=== PATIENT | female | born 1975 | race Caucasian/White ===

== ENCOUNTER 2016-11-20 22:19 | Observation (INO) | payer BC, OTHER ==
[2016-11-20] MEDS ORDERED: Aspirin Low Dose CHEW TAB* 81 MG PO ONE (22:22)
[2016-11-20 22:56] LABS: Albumin 4.1 g/dL (3.2-5.2); BUN/Creatinine Ratio 12.4 (8-20); Calcium 9.1 mg/dL (8.6-10.3); EGFR African American 89.9 (>60); EGFR Non-African American 69.9 (>60); Globulin 3.4 g/dL (2-4); Total Bilirubin 1.3 mg/dL (0.2-1.0); Total Protein 7.5 g/dL (6.4-8.9)
--- NOTE | 2016-11-20 23:02 | RAD ---
INDICATION: Chest pain COMPARISON: Chest x-ray April 19, 2015 TECHNIQUE: An AP portable view obtained at 2240 hours is submitted. FINDINGS: Bones/Soft Tissues: There are no acute bony findings. Cardiomediastinal: The cardiomediastinal silhouette is normal. Lungs: There are no infiltrates. Pleura: There are no pleural effusions. Other: There is artifact likely related to the patient's gown. IMPRESSION: NO ACTIVE DISEASE.
[2016-11-20 23:05] LABS: Potassium 4.5 mmol/L (3.5-5.0)
[2016-11-20 23:08] LABS: Hematocrit 44 % (35-47); Hemoglobin 15.2 g/dl (12.0-16.0); Mean Corpuscular HGB Conc 35 g/dl (31-36); Mean Corpuscular Hemoglobin 32 pg (27-31); Mean Corpuscular Volume 92 fL (80-97); Red Blood Count 4.78 10^6/ul (4.0-5.4); Red Cell Distribution Width 13 % (10.5-15); White Blood Count 8.9 10^3/ul (3.5-10.8)
[2016-11-20 23:09] LABS: Comments Flag Yes
[2016-11-20 23:12] LABS: Add Diff/Slide Review? Slide Review Added
[2016-11-20 23:15] LABS: Troponin I 0.01 ng/mL (<0.04)
[2016-11-20 23:30] LABS: Mean Platelet Volume 9 um3 (7.4-10.4)
--- NOTE | 2016-11-21 | ED ---
Carroll Fuentes Erika, scribed for Vicky Mckinney MD on 11/20/16 at 2255 . HPI Chest Pain - HPI Summary HPI Summary: Patient is a 41-year-old female presenting to the ED with a CC of chest tightness today. Patient reports that 1 year ago, she was seen in the ED with chest pain radiating to her arm, and was diagnosed with anxiety. She states today, her symptoms feel different. She reports that around 22:00 today, she developed numbness and tingling diffusely. She also notes chest tightness which lasted a few minutes, and was rated an 8/10 pain. Associated symptoms include elevated heart rate, but patient denies SOB and nausea. Pt reports that she has had cold-like symptoms, and has been coughing today. Pt denies recent travel. Pt took Nyquil tonight. Patient denies Hx HTN, DM, and hyperlipidemia. She denies FHx AK before the age of 55, and denies FHx PE. Patient lives with her . She is a former smoker who quit 2 years ago, and she drinks a few drinks/night on weekends. Patient does not have a set PCP, but has been seen by [facility]. - History of Current Complaint Chief Complaint: EDChestPainROMI Time Seen by Provider: 11/20/16 22:22 Hx Obtained From: Patient, Family/Bundle Clerk - Onset/Duration: Started Hours Ago - 1 hour, Atraumatic, Resolved Timing: Constant, Lasting Minutes Initial Severity: Moderate Current Severity: None Pain Intensity: 0 Pain Scale Used: 0-10 Numeric Chest Pain Radiates: No Character: Tightness Aggravating Factor(s): Nothing Alleviating Factor(s): Spontaneous Resolution Associated Signs and Symptoms: Positive: Numbness, Tingling, Other: - elevated HR. Negative: Shortness of Breath, Nausea - Allergy/Home Medications Allergies/Adverse Reactions: Allergies Allergy/AdvReac Type Severity Reaction Status Date / Time No Known Allergies Allergy Verified 04/19/15 11:33 PMH/Surg Hx/FS Hx/Imm Hx Endocrine/Hematology History: Denies: Hx Diabetes Cardiovascular History: Denies: Hx Hypercholesterolemia, Hx Hypertension - Surgical History Surgery Procedure, Year, and Place: D&C Infectious Disease History: Denies: Traveled Outside the [place] in Last 30 Days - Family History Family History: Denies FHx AK before age 55. Denies FHx PE - Social History Lives: With Family Alcohol Use: Weekly Hx Substance Use: No Substance Use Type: Reports: None Hx Tobacco Use: Yes Smoking Status (MU): Former Smoker Review of Systems Cardiovascular: Other - elevated HR Positive: Chest Pain Positive: Cough. Negative: Shortness Of Breath Negative: Nausea Positive: Paresthesia, Numbness All Other Systems Reviewed And Are Negative: Yes Physical Exam Triage Information Reviewed: Yes Vital Signs On Initial Exam: Initial Vital Signs Temp 99.8 F 11/20/16 22:20 Pulse 91 11/20/16 22:20 Resp 18 11/20/16 22:20 BP 162/88 11/20/16 22:20 Pulse Ox 97 11/20/16 22:20 Vital Signs Reviewed: Yes Appearance: Positive: Well-Appearing, No Pain Distress Skin: Positive: Warm, Skin Color Reflects Adequate Perfusion, Dry Eyes: Positive: EOMI, NANCY ENT: Positive: Pharynx normal, TMs normal Neck: Positive: Supple, Nontender Respiratory/Lung Sounds: Positive: Clear to Auscultation, Breath Sounds Present. Negative: Rales, Rhonchi, Wheezes Cardiovascular: Positive: RRR, Other - No gallops. Negative: Murmur, Rub Abdomen Description: Positive: Nontender, Soft, Other: - No rebound. Negative: Distended, Guarding Bowel Sounds: Positive: Present Musculoskeletal: Positive: Strength/ROM Intact. Negative: Edema Left, Edema Right Neurological: Positive: Sensory/Motor Intact, Alert, Oriented to Person Place, Time, Other - CN II-XII intact Psychiatric: Positive: Affect/Mood Appropriate Diagnostics - Vital Signs Vital Signs Temp Pulse Resp BP Pulse Ox 11/20/16 22:20 99.8 F 91 18 162/88 97 - Laboratory Lab Results: Lab Results 11/20/16 11/20/16 11/20/16 Range/Units 22:30 22:30 22:30 WBC 8.9 (3.5-10.8) 10^3/ul RBC 4.78 (4.0-5.4) 10^6/ul Hgb 15.2 (12.0-16.0) g/dl Hct 44 (35-47) % MCV 92 (80-97) fL MCH 32 H (27-31) pg MCHC 35 (31-36) g/dl RDW 13 (10.5-15) % Plt Count 240 (150-450) 10^3/ul MPV 9 (7.4-10.4) um3 Neut % (Auto) 63.1 (38-83) % Lymph % (Auto) 26.3 (25-47) % Leon % (Auto) 7.0 (1-9) % Eos % (Auto) 2.9 (0-6) % Baso % (Auto) 0.7 (0-2) % Absolute Neuts (auto) 5.6 (1.5-7.7) 10^3/ul Absolute Lymphs (auto) 2.3 (1.0-4.8) 10^3/ul Absolute Monos (auto) 0.6 (0-0.8) 10^3/ul Absolute Eos (auto) 0.3 (0-0.6) 10^3/ul Absolute Basos (auto) 0.1 (0-0.2) 10^3/ul Absolute Nucleated RBC 0.02 10^3/ul Nucleated RBC % 0.2 Sodium 131 L (133-145) mmol/L Potassium 4.5 (3.5-5.0) mmol/L Chloride 95 L (101-111) mmol/L Carbon Dioxide 28 (22-32) mmol/L Anion Gap 8 (2-11) mmol/L BUN 11 (6-24) mg/dL Creatinine 0.89 (0.51-0.95) mg/dL Est GFR ( Amer) 89.9 (>60) Est GFR (Non-Af Amer) 69.9 (>60) BUN/Creatinine Ratio 12.4 (8-20) Glucose 110 H (70-100) mg/dL Lactic Acid 1.9 (0.5-2.0) mmol/L Calcium 9.1 (8.6-10.3) mg/dL Total Bilirubin 1.30 H (0.2-1.0) mg/dL AST 138 H (13-39) U/L ALT 328 H (7-52) U/L Alkaline Phosphatase 69 (34-104) U/L Troponin I 0.01 (<0.04) ng/mL Total Protein 7.5 (6.4-8.9) g/dL Albumin 4.1 (3.2-5.2) g/dL Globulin 3.4 (2-4) g/dL Albumin/Globulin Ratio 1.2 (1-3) Result Diagrams: 11/20/16 22:30 11/20/16 22:30 Lab Statement: Any lab studies that have been ordered have been reviewed, and results considered in the medical decision making process. - Radiology CXR Xray Interpretation: No Acute Changes Radiology Interpretation Completed By: ED Physician - EKG 22:19 Cardiac Rate: NL - at 86 bpm EKG Rhythm: Sinus Rhythm EKG Interpretation: Poor R wave progression EKG Comparison: No Significant Change - from 04/19/2015 Re-Evaluation - Re-Evaluation First Eval Re-Evaluation Time: 23:15 Comment: Patient agrees with plan for admission Chest Pain Course/Dx - Course Course Of Treatment: 41 yo female here with tingling all over and chest discomfort. risks include tob and untreated htn, her ekg is unchanged from a previous ekg but which does show poor r wave progression. given that she arrived right after the chest pain started she will not be ruled out until 4am. I have asked the hospitalist to put in her observation - Diagnoses Provider Diagnoses: Chest pain - Provider Notifications Discussed Care Of Patient With: Dr. Sanchez (hospitalist) at 23:14 - agrees to admit Discharge - Discharge Plan Condition: Stable Disposition: ADMITTED TO [facility] Referrals: No Primary Care Phys,NOPCP [Primary Care Provider] - The documentation as recorded by the Carroll garsia Erika accurately reflects the service I personally performed and the decisions made by me, Vicky Mckinney MD.
[2016-11-21] MEDS: LORazepam INJ* 2 MG/ML 1 ML VIAL IV PUSH ONE ×2 (00:13→01:15)
--- NOTE | 2016-11-21 01:19 | HP ---
H&P (Free Text) History and Physical: PCP: [facility] Date/Time of Evaluation: 11/21/2016 0130 CC: chest pain, N/T HPI: Mrs Redd is a 41YO healthy female reporting to triage nursing R shoulder pain radiating to the L shoulder. However, to me she reports onset of whole body "numbness & tingling" as the reason she presented. She admits to some palpitations, but no SOB, N/V, light-headedness, or sweats. There has been no focal weakness, change in speech/swallow/vision, or other issues. While in the ED she developed mild substernal chest tightness without other associations and without exacerbating or alleviating factors. Also, while here she states she has had a couple of brief episodes of L-sided body numbness and tingling without other associations. She denies F/C, N/V/D, abdominal pain, B/U/F of urine. She was on vacation this week and while not commenting on how much, she admits to significant alcohol during the time. 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; full code status FamHx: negative for early onset CAD ROS: as above, otherwise reviewed and all were negative Constitutional: NAD, normally developed, obese white female vitals: Vital Signs Temp 37.7 C 11/20/16 22:20 Pulse 79 11/21/16 01:00 Resp 13 11/21/16 01:15 BP 162/88 11/20/16 22:20 Pulse Ox 98 11/21/16 01:00 Intake & Output 11/20/16 11/20/16 11/21/16 11:59 23:59 11:59 Weight 122.47 kg HEENM: atraumatic; sclera/conjunctiva: non-icteric/clear; hearing: intact; oropharynx: clear, mucosa moist Neck: soft tissue: non-tender; thyroid: normal Pulmonary: clear to auscultation bilaterally, good aeration, no accessory muscle use CV: RR/RR, normal S1S2, no carotid bruit, nno jugular venous distention, 2+ B DP /PT, no edema Abdominal: soft, non-distended, non-tender, no rebound/guarding/rigidity, normoactive bowel sounds, no hepatosplenomegaly or masses, no costovertebral angle tenderness Musculoskeletal: general: grossly intact; gait: stable Integumental: normal appearance and texture of exposed skin Neurological cranial nerves II: visual addison intact III/IV/: symmetric light reflex, EOMI/PERRLA, intact convergence & accommodation V: intact facial sensation, intact mastication VII: intact facial symmetry, intact eye clench VIII: intact hearing IX/X: symmetric palatal motion, no dysarthria XII: midline tongue protrusion, normal voice articulation motor: R-handed, no pronator drift LUE: 4+/5 proximally, distally, & police lieutenant precinct strength RUE: 4+/5 proximally, distally, & police lieutenant precinct strength LLE: 4+/5 proximally & distally RLE: 4+/5 proximally & distally coordination finger/nose: intact B heal/tristan: intact B dysdiadochokinesia: none sensory crude touch: intact globally pinprick: intact globally proprioception: intact BLE DTRs biceps: 2+ B triceps: 2+ B brachioradialis: 2+ B patellar: 2+ B Achilles: 2+ B Babinski: negative B Psychiatric orientation: AA&O to PPS affect: calm mood: cooperative eye contact: good content: reliable responses: timely insight: good to fair Testing: Lab Results 11/20/16 11/20/16 11/20/16 Range/Units 22:30 22:30 22:30 WBC 8.9 (3.5-10.8) 10^3/ul RBC 4.78 (4.0-5.4) 10^6/ul Hgb 15.2 (12.0-16.0) g/dl Hct 44 (35-47) % MCV 92 (80-97) fL MCH 32 H (27-31) pg MCHC 35 (31-36) g/dl RDW 13 (10.5-15) % Plt Count 240 (150-450) 10^3/ul MPV 9 (7.4-10.4) um3 Neut % (Auto) 63.1 (38-83) % Lymph % (Auto) 26.3 (25-47) % Hinds % (Auto) 7.0 (1-9) % Eos % (Auto) 2.9 (0-6) % Baso % (Auto) 0.7 (0-2) % Absolute Neuts (auto) 5.6 (1.5-7.7) 10^3/ul Absolute Lymphs (auto) 2.3 (1.0-4.8) 10^3/ul Absolute Monos (auto) 0.6 (0-0.8) 10^3/ul Absolute Eos (auto) 0.3 (0-0.6) 10^3/ul Absolute Basos (auto) 0.1 (0-0.2) 10^3/ul Absolute Nucleated RBC 0.02 10^3/ul Nucleated RBC % 0.2 Sodium 131 L (133-145) mmol/L Potassium 4.5 (3.5-5.0) mmol/L Chloride 95 L (101-111) mmol/L Carbon Dioxide 28 (22-32) mmol/L Anion Gap 8 (2-11) mmol/L BUN 11 (6-24) mg/dL Creatinine 0.89 (0.51-0.95) mg/dL Est GFR ( Amer) 89.9 (>60) Est GFR (Non-Af Amer) 69.9 (>60) BUN/Creatinine Ratio 12.4 (8-20) Glucose 110 H (70-100) mg/dL Lactic Acid 1.9 (0.5-2.0) mmol/L Calcium 9.1 (8.6-10.3) mg/dL Total Bilirubin 1.30 H (0.2-1.0) mg/dL AST 138 H (13-39) U/L ALT 328 H (7-52) U/L Alkaline Phosphatase 69 (34-104) U/L Troponin I 0.01 (<0.04) ng/mL Total Protein 7.5 (6.4-8.9) g/dL Albumin 4.1 (3.2-5.2) g/dL Globulin 3.4 (2-4) g/dL Albumin/Globulin Ratio 1.2 (1-3) ECG, personally reviewed: NSR rate 86, no ischemia CXR, personally reviewed: IMPRESSION: NO ACTIVE DISEASE. Impression: 41F presenting with chest discomfort DIAGNOSIS & PLAN Primary chest pain r/o ACS : telemetry : trend troponin : supplemental oxygen hepatitis 2nd alcohol, mild-mod : IVFs : trend LFTs : advised to decrease alcohol consumption & f/u w/ PCP for monitoring of LFTs anxiety : alprazolam PRN Admission Rational: CDU observation for chest pain r/o DVTp: CHASITY Code Status: full HCP:
[2016-11-21] MEDS ORDERED: Acetaminophen TAB* 325 MG PO PRN (01:27)
[2016-11-21] MEDS ORDERED: Melatonin (NF) 3 MG TAB PO PRN (01:27)
[2016-11-21] MEDS ORDERED: Ondansetron INJ* 2 MG/ML VIAL IV PRN (01:28)
[2016-11-21] MEDS ORDERED: NS 0.9% 1000 ML* 1,000 ML IV SCH (01:30)
[2016-11-21] MEDS ORDERED: NS 0.9% 1000 ML* 1,000 ML IV ONE (01:30)
[2016-11-21 01:41] LABS: Troponin I 0.01 ng/mL (<0.04)
[2016-11-21] MEDS ORDERED: ALPRAZolam TAB* 0.25 MG PO PRN (01:42)
[2016-11-21] MEDS ORDERED: Pantoprazole IV* 40 MG IV SCH (02:00)
[2016-11-21 06:36] LABS: Albumin 3.6 g/dL (3.2-5.2); Direct Bilirubin 0.3 mg/dL (0.03-0.18); Indirect Bilirubin 0.9 mg/dL (0.3-1.0); Total Bilirubin 1.2 mg/dL (0.2-1.0); Total Protein 6.6 g/dL (6.4-8.9)
[2016-11-21 06:41] LABS: Troponin I 0.01 ng/mL (<0.04)
[2016-11-21] MEDS ORDERED: Aspirin TAB* 325 MG PO SCH (09:00)
[2016-11-21] MEDS ORDERED: Docusate CAP* 100 MG PO SCH (09:00)
--- NOTE | 2016-11-21 10:01 | PN ---
Subjective Date of Service: 11/21/16 Interval History: Patient seen and examined at bedside. She reports chest and shoulder discomfort overnight but denies any complaint this morning. Denies SOB, abd pain, n/v. Does report tingling/numbness that was present overnight in left arm but is not present currently. Patient reports moving to area 1 month ago and has no PCP. Telemetry: SR 70s Family History: Unchanged from Admission Social History: Unchanged from Admission Past Medical History: Unchanged from Admission Objective Active Medications: Acetaminophen (Tylenol Tab*) 650 mg PO Q6H PRN PRN Reason: FEVER/PAIN Alprazolam (Xanax Tab*) 0.25 mg PO TID PRN PRN Reason: ANXIETY Aspirin (Aspirin Tab*) 325 mg PO DAILY [facility] Docusate Sodium (Colace Cap*) 200 mg PO BID [facility] Sodium Chloride (Ns 0.9% 1000 Ml*) 1,000 mls @ 125 mls/hr IV PER RATE [facility] Last Admin: 11/21/16 04:53 Dose: 125 mls/hr Melatonin (Melatonin (Nf)) 3 mg PO BEDTIME PRN; Protocol PRN Reason: Sleep Ondansetron HCl (Zofran Inj*) 4 mg IV Q6H PRN PRN Reason: NAUSEA Pantoprazole Sodium (Protonix Iv*) 40 mg IV 0900 [facility] Last Admin: 11/21/16 03:27 Dose: 40 mg Vital Signs 11/21/16 11/21/16 11/21/16 01:50 02:42 03:11 Temperature 97.6 F 98.4 F 98.4 F Pulse Rate 83 85 Respiratory 16 16 Rate Blood Pressure 151/82 151/82 (mmHg) O2 Sat by Pulse 97 97 Oximetry 11/21/16 11/21/16 11/21/16 03:54 07:29 08:32 Temperature 98.0 F 98.2 F Pulse Rate 79 75 Respiratory 20 16 Rate Blood Pressure 153/96 159/74 (mmHg) O2 Sat by Pulse 100 98 98 Oximetry Oxygen Devices in Use Now: None Appearance: Young female patient, lying in bed, in NAD Eyes: PERRLA Ears/Nose/Mouth/Throat: Clear Oropharnyx, Mucous Membranes Moist Neck: NL Appearance and Movements; NL JVP Respiratory: Symmetrical Chest Expansion and Respiratory Effort, Clear to Auscultation Cardiovascular: NL Sounds; No Murmurs; No JVD, RRR Abdominal: NL Sounds; No Tenderness; No Distention Extremities: No Edema Skin: No Rash or Ulcers Neurological: Alert and Oriented x 3 Lines/Tubes/Other Access: Clean, Dry and Intact Peripheral IV Result Diagrams: 11/20/16 22:30 11/20/16 22:30 Additional Lab and Data: Lab Results 11/20/16 11/20/16 11/20/16 Range/Units 22:30 22:30 22:30 WBC 8.9 (3.5-10.8) 10^3/ul RBC 4.78 (4.0-5.4) 10^6/ul Hgb 15.2 (12.0-16.0) g/dl Hct 44 (35-47) % MCV 92 (80-97) fL MCH 32 H (27-31) pg MCHC 35 (31-36) g/dl RDW 13 (10.5-15) % Plt Count 240 (150-450) 10^3/ul MPV 9 (7.4-10.4) um3 Neut % (Auto) 63.1 (38-83) % Lymph % (Auto) 26.3 (25-47) % Screven % (Auto) 7.0 (1-9) % Eos % (Auto) 2.9 (0-6) % Baso % (Auto) 0.7 (0-2) % Absolute Neuts (auto) 5.6 (1.5-7.7) 10^3/ul Absolute Lymphs (auto) 2.3 (1.0-4.8) 10^3/ul Absolute Monos (auto) 0.6 (0-0.8) 10^3/ul Absolute Eos (auto) 0.3 (0-0.6) 10^3/ul Absolute Basos (auto) 0.1 (0-0.2) 10^3/ul Absolute Nucleated RBC 0.02 10^3/ul Nucleated RBC % 0.2 Sodium 131 L (133-145) mmol/L Potassium 4.5 (3.5-5.0) mmol/L Chloride 95 L (101-111) mmol/L Carbon Dioxide 28 (22-32) mmol/L Anion Gap 8 (2-11) mmol/L BUN 11 (6-24) mg/dL Creatinine 0.89 (0.51-0.95) mg/dL Est GFR ( Amer) 89.9 (>60) Est GFR (Non-Af Amer) 69.9 (>60) BUN/Creatinine Ratio 12.4 (8-20) Glucose 110 H (70-100) mg/dL Lactic Acid 1.9 (0.5-2.0) mmol/L Calcium 9.1 (8.6-10.3) mg/dL Total Bilirubin 1.30 H (0.2-1.0) mg/dL AST 138 H (13-39) U/L ALT 328 H (7-52) U/L Alkaline Phosphatase 69 (34-104) U/L Troponin I 0.01 (<0.04) ng/mL Total Protein 7.5 (6.4-8.9) g/dL Albumin 4.1 (3.2-5.2) g/dL Globulin 3.4 (2-4) g/dL Albumin/Globulin Ratio 1.2 (1-3) Assess/Plan/Problems-Billing Assessment: Ms. Redd is a 41 yo female with no significant known PMH that presented to the ED on 11/20/16 for evaluation of generalized tingling/numbness and chest pain. - Patient Problems (1) Chest pain Code(s): R07.9 - CHEST PAIN, UNSPECIFIED Comment: No significant ST or T wave changes, troponins flat. Nuclear stress test is low risk and shows no evidence of stress induced myocardial ischemia or presence of an infarct and normal LV wall motion and EF. (2) HTN (hypertension) Code(s): I10 - ESSENTIAL (PRIMARY) HYPERTENSION Comment: SBP 130s-170s (even when checked manually) Start amlodipine. Better SBP with amlodipine. Outpatient follow-up with PCP for further hypertensive management. (3) Hepatitis, alcoholic Current Visit: Yes Status: Acute Code(s): K70.10 - ALCOHOLIC HEPATITIS WITHOUT ASCITES SNOMED Code(s): 928969725 Comment: LFTs mildly improved from previous labs Patient reports "increased" alcohol consumption recently on vacation and admits to stress. I have advised her to stop drinking or to reduce her alcohol consumption. Follow-up LFTs as an outpatient, results to PCP. (4) Anxiety Code(s): F41.9 - ANXIETY DISORDER, UNSPECIFIED Comment: Supportive care. (5) DVT prophylaxis Code(s): UZW1834 - Comment: TEDs Status and Disposition: OBV admit. D/c to home.
[2016-11-21 10:35] LABS: HDL Cholesterol 41.3 mg/dL
[2016-11-21] MEDS ORDERED: Regadenoson* 0.4 MG/5 ML SYRINGE ONE (11:57)
[2016-11-21] MEDS ORDERED: Aminophylline IV* 25 MG/ML 10 ML VIAL ONE (11:57)
--- NOTE | 2016-11-21 13:31 | RAD ---
Edited for charges. INDICATION: Chest pain, hypertension, obesity, family history of heart disease. COMPARISON: None. TECHNIQUE: 10.380 mCi of Tc-99m Myoview were administered IV. SPECT images of the heart were obtained. Later on the same day, under the direction of Dr. Cobb, the patient was given an IV injection of a pharmacologic stress agent. Subsequently, the patient was given an IV injection of 24.600 mCi Tc-99m Myoview. SPECT images of the heart were obtained and a gated wall motion study was performed. FINDINGS: Gated wall motion images were obtained at stress and demonstrate wall motion to be within normal limits. Calculated left ventricular ejection fraction is 72 % at stress. Estimated LEFT ventricular end diastolic volume is 104 mL. TID 1.17. Based on review of the attenuation corrected and non corrected images the distribution of radiopharmaceutical within the myocardium on the stress and rest images is within normal limits. No fixed or reversible regions of hypoperfusion evident. IMPRESSION: 1. No evidence for stress induced myocardial ischemia or presence of an infarct. 2. Normal left ventricular wall motion and ejection fraction. ASSESSMENT: Low risk. Based on imaging criteria from ACC/AHA 2002 Guideline Update for the Management of Patients With Chronic Stable Angina Table 23. Noninvasive Risk Stratification. MTDD
[2016-11-21] MEDS ORDERED: amLODIPine TAB* 5 MG PO SCH (15:00)
[2016-11-21 15:22] VITALS: BP 149/76
--- NOTE | 2016-11-22 14:34 | DS ---
DISCHARGE SUMMARY: DATE OF ADMISSION: 11/21/16 DATE OF DISCHARGE: 11/21/16 PROVIDER: Ok Braden NP ATTENDING PHYSICIAN: Amado Craig MD* (as dictated by Ok Braden NP) PRIMARY CARE PHYSICIAN: Dilshad Lopez MD PRIMARY DISCHARGE DIAGNOSES: 1. Chest pain. 2. Hepatitis, secondary to alcohol use. 3. Hypertension. HOME MEDICATIONS AT DISCHARGE: Amlodipine 5 mg daily - this was a new medication. The patient was not previously on any home medications. DIAGNOSTIC TESTING DURING THE PATIENT'S COURSE OF STAY: Chest x-ray performed on 11/20/16 showed no active disease. Nuclear medicine scan and cardiac stress test, findings: Gated wall motion images were obtained at stress and demonstrated wall motion to be within normal limits. Calculated left ventricular ejection fraction is 72% at stress. Estimated left ventricular end-diastolic volume is 104 mL, TID 1.17. Impression: 1. No evidence for stress-induced myocardial ischemia or presence of infarct. 2. Normal left ventricular wall motion ejection fraction. Assessment: Low risk. HOSPITAL COURSE OF STAY: For full details, please refer to the H and P provided by Dr. Sanchez. In summary, Ms. Redd is a 41-year-old female with no known past medical history, who presented to the ER for evaluation of right shoulder pain that radiated to the left shoulder. She also reported whole body "numbness and tingling" as well as some palpitations and substernal chest tightness. Her EKG showed normal sinus rhythm with no ischemic changes noted; however, given her presentation, the patient was admitted under observation status to rule out acute coronary syndrome. She was monitored on telemetry and remained in sinus rhythm. Her troponins remained flat at 0.01 on all 3 checks. A liver profile was checked and the patient has normal triglycerides at 123, cholesterol at 137, LDL 71, and HDL 41.3. Her hemoglobin A1c is 5.2. There was concern for the patient's LFTs, which were elevated upon admission. She had a noted total bilirubin of 1.30, an AST of 138, and an ALT of 328. It was repeated in the morning with her AST at 92 and her ALT at 258 following IV fluids. Her total bilirubin was 1.2. The patient did report to the admitting physician that she had had increased amount of alcohol over the past week due to recent vacation. In terms of the patient's chest pain, she states that the shoulder discomfort, the tingling and numbness, and the substernal chest pain was present overnight, but not present in the morning. She agrees to not having it previously with the PCP. We went ahead and ordered a nuclear stress test to be done during this admission. The results, as previously stated, were negative for any acute coronary syndrome and again the patient has negative EKG and troponins. However , it was noted during her admission and during her stress test that her blood pressure was significantly elevated, ranging from 130s to 180s, these were also checked manually and remained consistent. The patient was unable to have exercise-induced stress test due to these blood pressures and instead had a chemical nuclear stress test. The patient was started on amlodipine and "the side effects" and purpose of this medications was reviewed with the patient. She is in agreement with this. She states that she does have a history of similar symptoms of tingling and numbness when she was and reports that she had concern for high blood pressure at that time as well. In terms of the patient's alcoholic hepatitis, she was advised to stop drinking or to at least reduce her alcohol intake if she is unable to stop drinking at all. The patient verbalized understanding. I did order followup LFTs to be completed later on in the week on or Monday prior to her followup appointment with Dr. Lopez at [facility]. CONCERNS AT DISCHARGE: Ms. Redd is discharged to home on 11/21/16 with a plan to follow up with [facility] on 11/24/16. DIET: Heart healthy diet. ACTIVITY: As tolerated. CONDITION: Stable. DISPOSITION: To home. TIME SPENT: Time spent on this discharge was approximately 40 minutes. Again, this is only a brief summary of the patient's hospital course of stay. For full details, please refer to the full medical record. If you have any further questions or need further assistance, please feel free to contact me at [phone]. OK BRADEN NP CC: Dilshad Lopez MD* [id number]/[facility] #: [id number] [facility]
== END 2016-11-21 16:30 | disposition home or self-care (01) ==
LOC: ED 22:19 → MEDTELE 11-21 01:38
PROVIDERS: ADMIT Hospitalist; ATTEND Internal Medicine
DX: R07.9 Chest pain, unspecified (principal); K70.10 Alcoholic hepatitis without ascites; I10 Essential (primary) hypertension; M25.511 Pain in right shoulder; Z87.891 Personal history of nicotine dependence; Z79.82 Long term (current) use of aspirin; F41.9 Anxiety disorder, unspecified
CPT/HCPCS: 36415; 71010; 78452; 80053; 80061; 80076; 83036; 83605; 84484; 85025; 93005; 93017; 96374; 99284; A9270-GY; A9502; G0378; J0280; J2060; J2785

== ENCOUNTER 2023-08-21 07:02 | Inpatient (IN) ==
[2023-08-21 07:49] LABS: INR 3.53 (0.83-1.13)
[2023-08-21 07:52] LABS: Hematocrit 22.3 % (35-45); Hemoglobin 7.5 g/dL (11.5-14.3); Mean Corpuscular Hemoglobin 36.4 pg (27-33); Mean Corpuscular Hgb Conc 33.6 g/dL (31-36); Mean Corpuscular Volume 108.1 fL (80-97); Mean Platelet Volume 8.6 fL (7.5-11.2); Platelet Count 170 10^3/uL (150-450); Red Blood Count 2.06 10^6/uL (3.63-4.92); Red Cell Distribution Width 18.8 % (12-17); White Blood Count 15.3 10^3/uL (3.8-11.8)
[2023-08-21 08:08] LABS: HCG Pregnancy 0.87 mIU/mL
[2023-08-21 08:09] LABS: Albumin 2.3 g/dL (3.2-5.2); Albumin/Globulin Ratio 0.7 (1-3); C Reactive Protein 5.17 mg/L (<8.01); Calcium 9.1 mg/dL (8.6-10.3); Creatinine, Serum 1.25 mg/dL (0.51-0.95); Direct Bilirubin 4.3 mg/dL (0.03-0.18); Globulin 3.3 g/dL (2-4); Indirect Bilirubin 5.6 mg/dL (0.3-1.0); Magnesium 1.5 mg/dL (1.9-2.7); Potassium 4.5 mmol/L (3.5-5.0); Total Bilirubin 9.9 mg/dL (0.2-1.0); Total Protein 5.6 g/dL (6.4-8.9); eGFR CKD-EPI 53.2 (>60)
[2023-08-21 08:11] LABS: Urine Appearance Cloudy; Urine Color Orange
[2023-08-21 08:20] LABS: Urine Specific Gravity 1.023 (1.002-1.030)
[2023-08-21] MEDS ORDERED: cefTRIAXone 2 gm/50 mL D5W 2 GM/50 ML BAG IV ONE (08:26)
[2023-08-21 08:29] LABS: Urine Benzodiazepine Screen None Detected (None Detect); Urine Cannabinoids Screen None Detected (None Detect); Urine Opiates Screen None Detected (None Detect)
[2023-08-21 08:31] LABS: Urine Bacteria 1+ (Absent); Urine Red Blood Cell 2+(6-10/hpf) (Absent); Urine Squamous Epithelial Cell Present (Absent); Urine White Blood Cell 1+(6-10/hpf) (Absent)
[2023-08-21] MEDS: Lactulose 30 ml UDC PO ONE ×2 (08:32→08:34)
[2023-08-21] MEDS ORDERED: Lactulose 300 ML for PR 200 GM/300 ML BTL PR ONE ×2 (08:37→10:10)
[2023-08-21] MEDS ORDERED: Iohexol 350 (CONTRAST) 500 ML MDV IV ONE (08:37)
[2023-08-21] MEDS ORDERED: Haloperidol 5 mg/ml SDV IV/IM 5 MG/ML AMP IV SLOW PU ONE ×2 (08:40→10:51)
[2023-08-21 08:43] LABS: ABS Basophils 0.1 10^3/uL (0.0-0.1); ABS Eosinophils 0.2 10^3/uL (0.0-0.5); ABS Lymphocytes 2.2 10^3/uL (1.0-4.8); ABS Monocytes 1.5 10^3/uL (0.0-0.9); ABS Neutrophils 11.4 10^3/uL (1.5-7.6); ABS Nucleated RBC 0.03 10^3/ul; Anisocytosis 2+; Eosinophil % 1.3 %; Macrocytosis 1+; Nucleated Red Blood Cells % 0.2 %/100WBC (0.0-0.8); Polychromasia 1+
[2023-08-21] MEDS ORDERED: Magnesium Sulfate 2 gm BAG 2 GM/50 ML BAG IVPB ONE (08:48)
[2023-08-21] MEDS ORDERED: Pantoprazole VIAL 40 MG VIAL IV ONE (09:36)
[2023-08-21] MEDS ORDERED: Haloperidol 5 mg/ml SDV IV/IM 5 MG/ML AMP ONE (10:51)
[2023-08-21] MEDS ORDERED: Lidocaine 1% VIAL 10 MG/ML 30 ML VIAL ONE (17:25)
[2023-08-21] MEDS: Lactulose 300 ML for PR 200 GM/300 ML BTL PR SCH ×2 (18:35→21:40)
[2023-08-21] MEDS ORDERED: LORazepam 2 mg VIAL 1 ml IV PUSH SCH (19:00)
[2023-08-21 19:12] LABS: Body Fluid Appearance Clear; Body Fluid Color Yellow; Body Fluid Source Peritonial Fluid
[2023-08-21 19:37] LABS: Body Fluid Total Nucleated 70 /mcL
[2023-08-21 20:01] LABS: Body Fluid Mono 77 %; Body Fluid Other Cells 14; Body Fluid Total Cells Counted 200
[2023-08-21 22:26] LABS: Hematocrit 16.7 % (35-45); Hemoglobin 5.7 g/dL (11.5-14.3)
[2023-08-22] MEDS ORDERED: Lactated Ringers 1000 ml BAG 1,000 ML IV ONE (00:52)
[2023-08-22 04:30] LABS: ABS Basophils 0.2 10^3/uL (0.0-0.1); ABS Eosinophils 0.3 10^3/uL (0.0-0.5); ABS Lymphocytes 1.8 10^3/uL (1.0-4.8); ABS Monocytes 0.9 10^3/uL (0.0-0.9); ABS Neutrophils 6.1 10^3/uL (1.5-7.6); ABS Nucleated RBC 0.01 10^3/ul; Eosinophil % 3.5 %; Hematocrit 16.6 % (35-45); Hemoglobin 5.8 g/dL (11.5-14.3); Lymphocyte % 19.1 %; Mean Corpuscular Hemoglobin 35.8 pg (27-33); Mean Corpuscular Hgb Conc 34.8 g/dL (31-36); Mean Corpuscular Volume 102.9 fL (80-97); Mean Platelet Volume 8.4 fL (7.5-11.2); Nucleated Red Blood Cells % 0.1 %/100WBC (0.0-0.8); Platelet Count 102 10^3/uL (150-450); Red Blood Count 1.61 10^6/uL (3.63-4.92); Red Cell Distribution Width 22.1 % (12-17); White Blood Count 9.2 10^3/uL (3.8-11.8)
[2023-08-22 04:49] LABS: Albumin 2.3 g/dL (3.2-5.2); Albumin/Globulin Ratio 0.9 (1-3); Calcium 8.7 mg/dL (8.6-10.3); Creatinine, Serum 0.91 mg/dL (0.51-0.95); Globulin 2.7 g/dL (2-4); Magnesium 1.8 mg/dL (1.9-2.7); Potassium 3.9 mmol/L (3.5-5.0); Total Bilirubin 8.1 mg/dL (0.2-1.0); eGFR CKD-EPI 77.8 (>60)
[2023-08-22 08:27] LABS: Hematocrit 20.1 % (35-45); Hemoglobin 7.1 g/dL (11.5-14.3)
[2023-08-22] MEDS: Pantoprazole VIAL 40 MG VIAL IV SCH ×2 (08:46→22:07)
[2023-08-22] MEDS: cefTRIAXone 2 gm/50 mL D5W 2 GM/50 ML BAG IV SCH (08:46)
[2023-08-22] MEDS: Lactulose 300 ML for PR 200 GM/300 ML BTL PR SCH ×3 (11:55→17:36)
[2023-08-22 12:03] LABS: Hepatitis B Surface Antigen Nonreactive (Nonreactive)
[2023-08-22 12:08] LABS: Hepatitis A Ab IgM Negative (Negative)
[2023-08-22 12:10] LABS: Hepatitis B Core IgM Nonreactive (Nonreactive)
[2023-08-22 12:20] LABS: Hepatitis C Antibody Negative (Negative)
[2023-08-22] MEDS ORDERED: fentaNYL 100 mcg/2 ml 50 MCG/ML VIAL IV ONE (14:50)
[2023-08-22] MEDS ORDERED: Midazolam 10 mg/10 ml VIAL 1 mg/ml 10 ml VIAL (10 mg) ONE (14:50)
[2023-08-22] MEDS ORDERED: fentaNYL 100 mcg/2 ml 50 MCG/ML VIAL ONE (14:50)
[2023-08-22 14:56] LABS: Hematocrit 18.6 % (35-45); Hemoglobin 6.6 g/dL (11.5-14.3)
[2023-08-22] MEDS: Lactulose 30 ml UDC PO SCH (22:04)
[2023-08-22 22:28] LABS: Hematocrit 23.7 % (35-45); Hemoglobin 8.3 g/dL (11.5-14.3)
[2023-08-23 06:55] LABS: Hematocrit 21.1 % (35-45); Hemoglobin 7.3 g/dL (11.5-14.3); Mean Corpuscular Hemoglobin 34.3 pg (27-33); Mean Corpuscular Hgb Conc 34.7 g/dL (31-36); Mean Corpuscular Volume 98.8 fL (80-97); Mean Platelet Volume 8.3 fL (7.5-11.2); Platelet Count 83 10^3/uL (150-450); Red Blood Count 2.14 10^6/uL (3.63-4.92); Red Cell Distribution Width 25.3 % (12-17); White Blood Count 7.1 10^3/uL (3.8-11.8)
[2023-08-23 07:44] LABS: Calcium 8.1 mg/dL (8.6-10.3); Creatinine, Serum 0.77 mg/dL (0.51-0.95); Potassium 3.4 mmol/L (3.5-5.0); eGFR CKD-EPI 95.1 (>60)
[2023-08-23 07:45] LABS: Albumin 2.2 g/dL (3.2-5.2); Albumin/Globulin Ratio 0.7 (1-3); Total Bilirubin 9.3 mg/dL (0.2-1.0); Total Protein 5.2 g/dL (6.4-8.9)
[2023-08-23 07:47] LABS: Magnesium 1.7 mg/dL (1.9-2.7)
[2023-08-23 08:01] LABS: ABS Basophils 0.1 10^3/uL (0.0-0.1); ABS Eosinophils 0.5 10^3/uL (0.0-0.5); ABS Lymphocytes 1.6 10^3/uL (1.0-4.8); ABS Monocytes 0.7 10^3/uL (0.0-0.9); ABS Neutrophils 4.2 10^3/uL (1.5-7.6); ABS Nucleated RBC 0.01 10^3/ul; Eosinophil % 6.4 %; Lymphocyte % 23.2 %; Macrocytosis 1+; Microcytosis 1+; Nucleated Red Blood Cells % 0.2 %/100WBC (0.0-0.8); Polychromasia 2+; Target Cells 1+
[2023-08-23] MEDS ORDERED: Magnesium Sulfate 2 gm BAG 2 GM/50 ML BAG IVPB ONE (08:29)
[2023-08-23] MEDS ORDERED: cefTRIAXone 2 gm/50 mL D5W 2 GM/50 ML BAG IV SCH (09:00)
[2023-08-23] MEDS: Lactulose 30 ml UDC PO SCH ×4 (09:14→20:44)
[2023-08-23] MEDS: Pantoprazole VIAL 40 MG VIAL IV SCH ×2 (09:18→20:46)
[2023-08-23] MEDS: cefTRIAXone 2 gm/50 mL D5W 2 GM/50 ML BAG IV SCH (09:22)
[2023-08-23] MEDS: KCL 20 MEQ/100 ML IVPREMIX 20 MEQ/100 ML BAG IV SCH ×2 (10:40→13:23)
[2023-08-23 13:13] LABS: Ferritin 81.8 ng/mL (11-307)
[2023-08-24 07:04] LABS: Albumin 2.2 g/dL (3.2-5.2); Albumin/Globulin Ratio 0.7 (1-3); Calcium 7.7 mg/dL (8.6-10.3); Creatinine, Serum 0.74 mg/dL (0.51-0.95); Globulin 3.2 g/dL (2-4); Magnesium 1.9 mg/dL (1.9-2.7); Potassium 3.3 mmol/L (3.5-5.0); Total Bilirubin 7.4 mg/dL (0.2-1.0); Total Protein 5.4 g/dL (6.4-8.9); eGFR CKD-EPI 99.7 (>60)
[2023-08-24 07:44] LABS: Hematocrit 21.8 % (35-45); Hemoglobin 7.5 g/dL (11.5-14.3); Mean Corpuscular Hemoglobin 34.5 pg (27-33); Mean Corpuscular Hgb Conc 34.6 g/dL (31-36); Mean Corpuscular Volume 99.7 fL (80-97); Mean Platelet Volume 8.5 fL (7.5-11.2); Platelet Count 88 10^3/uL (150-450); Red Blood Count 2.18 10^6/uL (3.63-4.92); Red Cell Distribution Width 25.7 % (12-17); White Blood Count 6.4 10^3/uL (3.8-11.8)
[2023-08-24 08:00] LABS: ABS Basophils 0.1 10^3/uL (0.0-0.1); ABS Eosinophils 0.4 10^3/uL (0.0-0.5); ABS Lymphocytes 1.4 10^3/uL (1.0-4.8); ABS Monocytes 0.7 10^3/uL (0.0-0.9); ABS Neutrophils 3.9 10^3/uL (1.5-7.6); ABS Nucleated RBC 0.01 10^3/ul; Eosinophil % 6.1 %; Lymphocyte % 22.2 %; Nucleated Red Blood Cells % 0.1 %/100WBC (0.0-0.8)
[2023-08-24] MEDS ORDERED: Potassium Chlor 20 meq TAB.ER PO ONE (08:05)
[2023-08-24] MEDS ORDERED: Influenza vaccine *QUAD* *2023-24* 0.5 ML SYRINGE IM ONE (09:00)
[2023-08-24] MEDS ORDERED: Pneumococcal Vac 23-Polyvalent IM ONE (09:00)
[2023-08-24] MEDS: cefTRIAXone 2 gm/50 mL D5W 2 GM/50 ML BAG IV SCH (09:35)
[2023-08-24] MEDS: Lactulose 30 ml UDC PO SCH (09:37)
[2023-08-24] MEDS: Pantoprazole VIAL 40 MG VIAL IV SCH ×2 (09:38→22:19)
[2023-08-24] MEDS: KCL 20 MEQ/100 ML IVPREMIX 20 MEQ/100 ML BAG IV SCH ×2 (11:03→13:08)
[2023-08-24 11:41] LABS: Albumin, BF 0.3 g/dL; Fluid Type, Albumin PERITONEAL; Fluid Type, Protein, Total PERITONEAL; Total Protein, BF 0.7 g/dL
[2023-08-25 07:29] LABS: Albumin 2.2 g/dL (3.2-5.2); Albumin/Globulin Ratio 0.7 (1-3); Calcium 7.4 mg/dL (8.6-10.3); Creatinine, Serum 0.72 mg/dL (0.51-0.95); Globulin 3.1 g/dL (2-4); Magnesium 1.8 mg/dL (1.9-2.7); Phosphorus 2.5 mg/dL (2.5-5.0); Potassium 3.3 mmol/L (3.5-5.0); Total Bilirubin 6.5 mg/dL (0.2-1.0); Total Protein 5.3 g/dL (6.4-8.9); eGFR CKD-EPI 103.1 (>60)
[2023-08-25 08:28] LABS: ABS Basophils 0.1 10^3/uL (0.0-0.1); ABS Eosinophils 0.5 10^3/uL (0.0-0.5); ABS Lymphocytes 1.3 10^3/uL (1.0-4.8); ABS Monocytes 0.6 10^3/uL (0.0-0.9); ABS Neutrophils 3.5 10^3/uL (1.5-7.6); ABS Nucleated RBC 0.01 10^3/ul; Eosinophil % 7.9 %; Hematocrit 22.5 % (35-45); Hemoglobin 7.8 g/dL (11.5-14.3); Lymphocyte % 22.1 %; Mean Corpuscular Hemoglobin 34.8 pg (27-33); Mean Corpuscular Hgb Conc 34.6 g/dL (31-36); Mean Corpuscular Volume 100.5 fL (80-97); Mean Platelet Volume 8.4 fL (7.5-11.2); Nucleated Red Blood Cells % 0.1 %/100WBC (0.0-0.8); Platelet Count 93 10^3/uL (150-450); Red Blood Count 2.23 10^6/uL (3.63-4.92); Red Cell Distribution Width 25.3 % (12-17)
[2023-08-25] MEDS: Pantoprazole VIAL 40 MG VIAL IV SCH ×2 (08:31→20:47)
[2023-08-25] MEDS: cefTRIAXone 2 gm/50 mL D5W 2 GM/50 ML BAG IV SCH (08:32)
[2023-08-25] MEDS ORDERED: Magnesium Sulfate 2 gm BAG 2 GM/50 ML BAG IVPB ONE (10:45)
[2023-08-26 08:16] LABS: Hematocrit 26.8 % (35-45); Hemoglobin 9.1 g/dL (11.5-14.3); Mean Corpuscular Hemoglobin 34.1 pg (27-33); Mean Corpuscular Hgb Conc 33.9 g/dL (31-36); Mean Corpuscular Volume 100.8 fL (80-97); Mean Platelet Volume 8.4 fL (7.5-11.2); Platelet Count 110 10^3/uL (150-450); Red Blood Count 2.66 10^6/uL (3.63-4.92); Red Cell Distribution Width 24.5 % (12-17); White Blood Count 7.6 10^3/uL (3.8-11.8)
[2023-08-26 08:35] LABS: Calcium 7.4 mg/dL (8.6-10.3); Creatinine, Serum 0.7 mg/dL (0.51-0.95); Potassium 3.3 mmol/L (3.5-5.0); eGFR CKD-EPI 106.6 (>60)
[2023-08-26] MEDS: Pantoprazole VIAL 40 MG VIAL IV SCH ×2 (09:43→12:50)
[2023-08-26] MEDS: Sulfamethox/Trimethoprim DS TAB 800/160 mg PO SCH ×2 (09:44→21:31)
[2023-08-26] MEDS: Potassium Chlor 20 meq TAB.ER PO SCH (11:11)
[2023-08-27] MEDS: Potassium Chlor 20 meq TAB.ER PO SCH (10:32)
[2023-08-27] MEDS: Sulfamethox/Trimethoprim DS TAB 800/160 mg PO SCH ×2 (10:33→21:11)
[2023-08-27 12:31] LABS: Albumin 2.4 g/dL (3.2-5.2); Albumin/Globulin Ratio 0.7 (1-3); Calcium 7.1 mg/dL (8.6-10.3); Creatinine, Serum 0.7 mg/dL (0.51-0.95); Globulin 3.4 g/dL (2-4); Potassium 3.5 mmol/L (3.5-5.0); Total Protein 5.8 g/dL (6.4-8.9); eGFR CKD-EPI 106.6 (>60)
[2023-08-28 09:58] LABS: Albumin 2.4 g/dL (3.2-5.2); Albumin/Globulin Ratio 0.7 (1-3); Calcium 6.8 mg/dL (8.6-10.3); Creatinine, Serum 0.82 mg/dL (0.51-0.95); Globulin 3.4 g/dL (2-4); Potassium 3.6 mmol/L (3.5-5.0); Total Protein 5.8 g/dL (6.4-8.9); eGFR CKD-EPI 88.2 (>60)
[2023-08-28] MEDS ORDERED: Albumin Human 25% 25 GM/100 ML BTL IV ONE (10:55)
[2023-08-28] MEDS: Potassium Chlor 20 meq TAB.ER PO SCH (10:57)
[2023-08-28] MEDS: Sulfamethox/Trimethoprim DS TAB 800/160 mg PO SCH ×2 (10:58→21:00)
[2023-08-29 07:46] LABS: Calcium 6.7 mg/dL (8.6-10.3); Creatinine, Serum 0.77 mg/dL (0.51-0.95); Potassium 3.8 mmol/L (3.5-5.0); eGFR CKD-EPI 95.1 (>60)
[2023-08-29] MEDS: Potassium Chlor 20 meq TAB.ER PO SCH (08:10)
[2023-08-29] MEDS: Sulfamethox/Trimethoprim DS TAB 800/160 mg PO SCH (08:10)
[2023-08-29 11:03] VITALS: BP 99/65
[2023-08-29] MEDS ORDERED: Sulfamethox/Trimethoprim DS TAB 800/160 mg PO ONE (14:00)
== END 2023-08-29 15:05 | disposition home or self-care (01) | DRG 264 ==
LOC: ED 07:02 → EDHOLD 11:59 → SUATTDRO 11:59 → ICU 12:37 → MED 08-22 21:45
PROVIDERS: ADMIT Student in an Organized Health Care Education/Training Program; ATTEND Internal Medicine

== ENCOUNTER 2024-01-13 21:12 | Inpatient (IN) ==
[2024-01-13 22:48] LABS: Albumin 2.8 g/dL (3.2-5.2); Albumin/Globulin Ratio 0.9 (1-3); Creatinine, Serum 1.14 mg/dL (0.51-0.95); Potassium 5.5 mmol/L (3.5-5.0); Total Protein 5.8 g/dL (6.4-8.9); eGFR CKD-EPI 59.4 (>60)
[2024-01-14] MEDS: cefTRIAXone 1 gm/50 mL D5W 1 GM/50 ML BAG IV SCH (00:21)
[2024-01-14] MEDS: Sodium Chloride 3% HYPERTONIC 150 ML IV ONE (00:28)
[2024-01-14] MEDS: Furosemide 40 mg/4 ml IV VIAL IV ONE (01:00)
[2024-01-14] MEDS: NS 0.9% 500 ml BAG 500 ML IV SCH (03:01)
[2024-01-14 03:58] LABS: Urine Appearance Clear; Urine Bilirubin Negative (Negative); Urine Blood Negative (Negative); Urine Color Light-Yellow; Urine Glucose Negative (Negative); Urine Ketones Negative (Negative); Urine Nitrite Negative (Negative); Urine Protein Negative (Negative); Urine Specific Gravity 1.008 (1.002-1.030); Urine Urobilinogen Negative (Negative); Urine pH 6.5 (5.0-8.0)
[2024-01-14 04:13] LABS: Urine Bacteria Absent /HPF (Absent); Urine Red Blood Cell Absent /HPF (0-Trace); Urine Squamous Epithelial Cell Present /HPF (Absent); Urine White Blood Cell 2+(11-20/hpf) /HPF (0-Trace)
[2024-01-14] MEDS ORDERED: fentaNYL 100 mcg/2 ml 50 MCG/ML VIAL IV SLOW PU PRN (04:18)
[2024-01-14] MEDS ORDERED: Acetaminophen IV 1 GM/100ML 1,000 MG/100 ML BAG IV PRN (04:19)
[2024-01-14 05:15] LABS: Hemoglobin 10.8 g/dL (11.5-14.3); Mean Corpuscular Hemoglobin 29.4 pg (27-33); Mean Corpuscular Hgb Conc 34.9 g/dL (31-36); Mean Corpuscular Volume 84.3 fL (80-97); Red Blood Count 3.68 10^6/uL (3.63-4.92); Red Cell Distribution Width 19.3 % (12-17); White Blood Count 8.5 10^3/uL (3.8-11.8)
[2024-01-14 05:34] LABS: ABS Monocytes 0.8 10^3/uL (0.0-0.9); ABS Neutrophils 6.7 10^3/uL (1.5-7.6); ABS Nucleated RBC 0.01 10^3/ul; Eosinophil % 0.3 %; Lymphocyte % 11.5 %; Mean Platelet Volume 7.8 fL (7.5-11.2); Nucleated Red Blood Cells % 0.2 %/100WBC (0.0-0.8); Platelet Count 159 10^3/uL (150-450)
[2024-01-14 05:40] LABS: Albumin 2.8 g/dL (3.2-5.2); Albumin/Globulin Ratio 0.9 (1-3); Creatinine, Serum 1.18 mg/dL (0.51-0.95); Globulin 3.1 g/dL (2-4); Potassium 4.8 mmol/L (3.5-5.0); Total Bilirubin 4.5 mg/dL (0.2-1.0); Total Protein 5.9 g/dL (6.4-8.9)
[2024-01-14 06:03] LABS: Urine Osmo 326 mOsm/kg (150-1150)
[2024-01-14] MEDS: metroNIDAZOLE IV 500 MG/100ML 500 MG/100 ML BAG IVPB SCH ×2 (07:36→15:09)
[2024-01-14 08:02] LABS: INR 1.79 (0.83-1.13)
[2024-01-14] MEDS: Heparin 5000 UNITS/ML 1 mL VIAL SUBCUT SCH (08:21)
[2024-01-14 11:52] LABS: Calcium 7.8 mg/dL (8.6-10.3); Creatinine, Serum 0.95 mg/dL (0.51-0.95); Potassium 4.4 mmol/L (3.5-5.0); eGFR CKD-EPI 73.9 (>60)
[2024-01-14 12:19] LABS: Osmolality Serum 266 mOsm/kg (275-295)
[2024-01-14] MEDS: Cosyntropin 0.25 MG VIAL IV ONE (14:01)
[2024-01-14 17:20] LABS: Calcium 7.9 mg/dL (8.6-10.3); Creatinine, Serum 0.88 mg/dL (0.51-0.95); Potassium 4.9 mmol/L (3.5-5.0)
[2024-01-14 18:20] LABS: TSH Ultra Thyroid Stim Horm 2.2 mcIU/mL (0.34-5.60)
[2024-01-15] MEDS: cefTRIAXone 1 gm/50 mL D5W 1 GM/50 ML BAG IV SCH (01:21)
[2024-01-15 05:20] LABS: ABS Basophils 0.1 10^3/uL (0.0-0.1); ABS Eosinophils 0.2 10^3/uL (0.0-0.5); ABS Lymphocytes 1.1 10^3/uL (1.0-4.8); ABS Monocytes 0.7 10^3/uL (0.0-0.9); ABS Neutrophils 7.6 10^3/uL (1.5-7.6); ABS Nucleated RBC 0.01 10^3/ul; Anisocytosis 2+; Eosinophil % 1.9 %; Hematocrit 27.7 % (35-45); Hemoglobin 9.6 g/dL (11.5-14.3); Lymphocyte % 11.5 %; Mean Corpuscular Hemoglobin 29.5 pg (27-33); Mean Corpuscular Hgb Conc 34.7 g/dL (31-36); Mean Corpuscular Volume 84.9 fL (80-97); Mean Platelet Volume 8.6 fL (7.5-11.2); Nucleated Red Blood Cells % 0.1 %/100WBC (0.0-0.8); Platelet Count 129 10^3/uL (150-450); Polychromasia 1+; Red Blood Count 3.26 10^6/uL (3.63-4.92); Red Cell Distribution Width 18.6 % (12-17); White Blood Count 9.6 10^3/uL (3.8-11.8)
[2024-01-15 05:41] LABS: Calcium 7.7 mg/dL (8.6-10.3); Creatinine, Serum 1.02 mg/dL (0.51-0.95); Potassium 4.9 mmol/L (3.5-5.0); eGFR CKD-EPI 67.9 (>60)
[2024-01-15] MEDS: Nystatin TOP POWDER 15 GM BTL TOPICAL SCH (10:44)
[2024-01-16] MEDS: cefTRIAXone 1 GM Q24H (ADVAN) IVPB ONE (01:16)
[2024-01-16 07:09] LABS: ABS Eosinophils 0.2 10^3/uL (0.0-0.5); ABS Lymphocytes 1.5 10^3/uL (1.0-4.8); ABS Monocytes 0.7 10^3/uL (0.0-0.9); ABS Neutrophils 6.7 10^3/uL (1.5-7.6); Hematocrit 30.1 % (35-45); Hemoglobin 10.1 g/dL (11.5-14.3); Lymphocyte % 16.1 %; Mean Corpuscular Hemoglobin 29.4 pg (27-33); Mean Corpuscular Hgb Conc 33.6 g/dL (31-36); Mean Corpuscular Volume 87.6 fL (80-97); Mean Platelet Volume 7.9 fL (7.5-11.2); Platelet Count 140 10^3/uL (150-450); Red Blood Count 3.44 10^6/uL (3.63-4.92)
[2024-01-16 07:23] LABS: Creatinine, Serum 1.16 mg/dL (0.51-0.95); eGFR CKD-EPI 58.2 (>60)
[2024-01-16] MEDS: Fluticasone NASAL SPRAY 50MCG 16 gm SPRAY BTL INTRANASAL SCH (08:26)
[2024-01-16] MEDS ORDERED: Dextran 70/Hypromellose Tears Eye Drops 15 ml BTL (for Artificials Tears) BOTH EYES PRN (11:21)
[2024-01-16 12:21] LABS: Calcium 7.9 mg/dL (8.6-10.3); Creatinine, Serum 1.2 mg/dL (0.51-0.95); Potassium 4.9 mmol/L (3.5-5.0); eGFR CKD-EPI 55.8 (>60)
[2024-01-16] MEDS: NF:Olopatadine 0.1% OPHTH (NF) 1 DROP BTL BOTH EYES SCH (20:12)
[2024-01-16 23:47] LABS: Calcium 7.8 mg/dL (8.6-10.3); Creatinine, Serum 1.29 mg/dL (0.51-0.95); Potassium 5.9 mmol/L (3.5-5.0); eGFR CKD-EPI 51.2 (>60)
[2024-01-17 01:05] LABS: Osmolality Serum 264 mOsm/kg (275-295)
[2024-01-17] MEDS: cefTRIAXone 1 gm/50 mL D5W 1 GM/50 ML BAG IV SCH (01:23)
[2024-01-17 02:50] LABS: Urine Osmo 420 mOsm/kg (150-1150)
[2024-01-17] MEDS ORDERED: fentaNYL 100 mcg/2 ml 50 MCG/ML VIAL ONE (07:55)
[2024-01-17] MEDS ORDERED: Midazolam 2 mg/2 ml VIAL 1 mg/ml 2 ml VIAL (2 mg) ONE (07:55)
[2024-01-17] MEDS ORDERED: Propofol 10 MG/ML 20 ML BTL ONE ×2 (07:56→10:49)
[2024-01-17] MEDS ORDERED: Rocuronium 50 mg VIAL 10 mg/ml 5 ml VIAL (50 mg) ONE (07:57)
[2024-01-17 08:26] LABS: Hematocrit 30.6 % (35-45); Hemoglobin 10.6 g/dL (11.5-14.3); Mean Corpuscular Hemoglobin 29.5 pg (27-33); Mean Corpuscular Hgb Conc 34.7 g/dL (31-36); Mean Corpuscular Volume 84.9 fL (80-97); Red Blood Count 3.61 10^6/uL (3.63-4.92); Red Cell Distribution Width 18.6 % (12-17); White Blood Count 7.4 10^3/uL (3.8-11.8)
[2024-01-17 08:27] LABS: INR 1.54 (0.83-1.13)
[2024-01-17 08:57] LABS: Albumin 2.9 g/dL (3.2-5.2); Albumin/Globulin Ratio 0.9 (1-3); Calcium 8.1 mg/dL (8.6-10.3); Globulin 3.2 g/dL (2-4); Potassium 5.1 mmol/L (3.5-5.0); Total Bilirubin 5.2 mg/dL (0.2-1.0); Total Protein 6.1 g/dL (6.4-8.9); eGFR CKD-EPI 69.5 (>60)
[2024-01-17 09:22] LABS: ABS Basophils 0.1 10^3/uL (0.0-0.1); ABS Eosinophils 0.2 10^3/uL (0.0-0.5); ABS Lymphocytes 1.4 10^3/uL (1.0-4.8); ABS Monocytes 0.5 10^3/uL (0.0-0.9); ABS Neutrophils 5.2 10^3/uL (1.5-7.6); ABS Nucleated RBC 0.01 10^3/ul; Eosinophil % 2.1 %; Mean Platelet Volume 8.7 fL (7.5-11.2); Nucleated Red Blood Cells % 0.1 %/100WBC (0.0-0.8); Platelet Count 153 10^3/uL (150-450)
[2024-01-17] MEDS ORDERED: Bupivacaine 0.25% SDV 30 ML ONE (09:28)
[2024-01-17] MEDS ORDERED: Lidocaine 1% w EPI 1:200,000 SDV 30 ML VIAL ONE (09:28)
[2024-01-17] MEDS ORDERED: ceFAZolin 2 GM PREMIX 2 GM/50 ML BAG ONE (09:36)
[2024-01-17] MEDS ORDERED: fentaNYL 100 mcg/2 ml 50 MCG/ML VIAL IV PRN (11:01)
[2024-01-17] MEDS ORDERED: Naloxone 0.4 mg VIAL 0.4 mg/ml 1 ml VIAL IV PRN (11:01)
[2024-01-17] MEDS: Ure-Na 15 GM POWD.PACK PO SCH (13:51)
[2024-01-17 18:39] LABS: Potassium 5.3 mmol/L (3.5-5.0)
[2024-01-17 18:41] LABS: Calcium 8.1 mg/dL (8.6-10.3); eGFR CKD-EPI 69.5 (>60)
[2024-01-17] MEDS: SODIUM ZIRCONIUM CYCLOSILICATE 10 GM PACKET PO ONE (20:04)
[2024-01-18 07:12] LABS: Calcium 7.8 mg/dL (8.6-10.3); Creatinine, Serum 1.14 mg/dL (0.51-0.95); Potassium 5.5 mmol/L (3.5-5.0); eGFR CKD-EPI 59.4 (>60)
[2024-01-18] MEDS: SODIUM ZIRCONIUM CYCLOSILICATE 10 GM PACKET PO ONE (08:41)
[2024-01-18] MEDS: Ure-Na 15 GM POWD.PACK PO SCH (08:41)
[2024-01-18 18:20] LABS: Calcium 7.9 mg/dL (8.6-10.3); Creatinine, Serum 1.34 mg/dL (0.51-0.95); eGFR CKD-EPI 48.9 (>60)
[2024-01-18] MEDS: NS 0.9% 1000 ml BAG 1,000 ML IV SCH (19:45)
[2024-01-18 20:05] LABS: Calcium 7.5 mg/dL (8.6-10.3); Creatinine, Serum 1.38 mg/dL (0.51-0.95); Potassium 4.5 mmol/L (3.5-5.0); eGFR CKD-EPI 47.2 (>60)
[2024-01-18] MEDS: NS 0.9% 500 ml BAG 500 ML IV SCH (20:49)
[2024-01-19 02:18] LABS: Calcium 7.3 mg/dL (8.6-10.3); Creatinine, Serum 1.48 mg/dL (0.51-0.95); Potassium 4.9 mmol/L (3.5-5.0); eGFR CKD-EPI 43.4 (>60)
[2024-01-19 04:06] LABS: ABS Basophils 0.1 10^3/uL (0.0-0.1); ABS Eosinophils 0.1 10^3/uL (0.0-0.5); ABS Lymphocytes 1.2 10^3/uL (1.0-4.8); ABS Monocytes 0.7 10^3/uL (0.0-0.9); ABS Neutrophils 5.3 10^3/uL (1.5-7.6); ABS Nucleated RBC 0.01 10^3/ul; Eosinophil % 1.8 %; Lymphocyte % 16.3 %; Nucleated Red Blood Cells % 0.1 %/100WBC (0.0-0.8)
[2024-01-19] MEDS: Sodium Chloride 3% HYPERTONIC 120 ML IV ONE (04:36)
[2024-01-19 04:37] LABS: Hematocrit 24.3 % (35-45); Hemoglobin 8.5 g/dL (11.5-14.3); Mean Corpuscular Hemoglobin 29.6 pg (27-33); Mean Corpuscular Hgb Conc 35.1 g/dL (31-36); Mean Corpuscular Volume 84.5 fL (80-97); Red Blood Count 2.88 10^6/uL (3.63-4.92); Red Cell Distribution Width 18.5 % (12-17); White Blood Count 7.4 10^3/uL (3.8-11.8)
[2024-01-19 05:01] LABS: Albumin 2.4 g/dL (3.2-5.2); Calcium 7.1 mg/dL (8.6-10.3); Creatinine, Serum 1.53 mg/dL (0.51-0.95); Globulin 2.5 g/dL (2-4); Potassium 4.8 mmol/L (3.5-5.0); Total Bilirubin 3.3 mg/dL (0.2-1.0); Total Protein 4.9 g/dL (6.4-8.9); eGFR CKD-EPI 41.7 (>60)
[2024-01-19 06:00] LABS: Platelet Count 125 10^3/uL (150-450)
[2024-01-19 06:01] LABS: Mean Platelet Volume 7.8 fL (7.5-11.2)
[2024-01-19 08:16] LABS: Calcium 7.5 mg/dL (8.6-10.3); Creatinine, Serum 1.39 mg/dL (0.51-0.95); Potassium 4.6 mmol/L (3.5-5.0); eGFR CKD-EPI 46.8 (>60)
[2024-01-19 11:26] LABS: Anion Gap 5 mmol/L (2-16); Blood Urea Nitrogen 92 mg/dL (6-24); CO2 Carbon Dioxide 23 mmol/L (22-32); Calcium 7.4 mg/dL (8.6-10.3); Chloride 89 mmol/L (101-111); Creatinine, Serum 1.33 mg/dL (0.51-0.95); Glucose 92 mg/dL (70-100); Sodium 117 mmol/L (135-145); eGFR CKD-EPI 49.4 (>60)
[2024-01-19 14:12] LABS: Calcium 7.4 mg/dL (8.6-10.3); Creatinine, Serum 1.32 mg/dL (0.51-0.95); Potassium 4.4 mmol/L (3.5-5.0); eGFR CKD-EPI 49.8 (>60)
[2024-01-19 23:08] LABS: Calcium 7.6 mg/dL (8.6-10.3); Creatinine, Serum 1.21 mg/dL (0.51-0.95); Potassium 4.6 mmol/L (3.5-5.0); eGFR CKD-EPI 55.3 (>60)
[2024-01-20 06:00] LABS: Calcium 7.6 mg/dL (8.6-10.3); Creatinine, Serum 1.13 mg/dL (0.51-0.95); Magnesium 2.2 mg/dL (1.9-2.7); Potassium 4.5 mmol/L (3.5-5.0)
[2024-01-20 06:59] LABS: Hematocrit 23.9 % (35-45); Hemoglobin 8.3 g/dL (11.5-14.3); Mean Corpuscular Hemoglobin 29.6 pg (27-33); Mean Corpuscular Hgb Conc 34.7 g/dL (31-36); Mean Corpuscular Volume 85.5 fL (80-97); Red Cell Distribution Width 18.3 % (12-17); White Blood Count 6.1 10^3/uL (3.8-11.8)
[2024-01-20 08:07] LABS: ABS Eosinophils 0.1 10^3/uL (0.0-0.5); ABS Lymphocytes 1.2 10^3/uL (1.0-4.8); ABS Monocytes 0.7 10^3/uL (0.0-0.9); ABS Neutrophils 4.2 10^3/uL (1.5-7.6); ABS Nucleated RBC 0.02 10^3/ul; Acanthocytes 2+; Anisocytosis 1+; Eosinophil % 1.6 %; Lymphocyte % 18.9 %; Nucleated Red Blood Cells % 0.4 %/100WBC (0.0-0.8)
[2024-01-21 06:17] LABS: Hematocrit 24.6 % (35-45); Hemoglobin 8.4 g/dL (11.5-14.3); Mean Corpuscular Hemoglobin 29.5 pg (27-33); Mean Corpuscular Hgb Conc 34.2 g/dL (31-36); Mean Corpuscular Volume 86.3 fL (80-97); Red Blood Count 2.85 10^6/uL (3.63-4.92); Red Cell Distribution Width 18.9 % (12-17); White Blood Count 6.5 10^3/uL (3.8-11.8)
[2024-01-21 06:27] LABS: Calcium 7.6 mg/dL (8.6-10.3); Creatinine, Serum 1.32 mg/dL (0.51-0.95); Magnesium 2.4 mg/dL (1.9-2.7); eGFR CKD-EPI 49.8 (>60)
[2024-01-21 06:56] LABS: ABS Eosinophils 0.1 10^3/uL (0.0-0.5); ABS Lymphocytes 1.2 10^3/uL (1.0-4.8); ABS Monocytes 0.7 10^3/uL (0.0-0.9); ABS Neutrophils 4.4 10^3/uL (1.5-7.6); Eosinophil % 1.9 %; Lymphocyte % 17.9 %; Mean Platelet Volume 7.7 fL (7.5-11.2); Platelet Count 122 10^3/uL (150-450)
[2024-01-21 10:28] LABS: Osmolality Serum 278 mOsm/kg (275-295)
[2024-01-21] MEDS: Bumetanide IV 0.25 MG/ML 4 ml VIAL (1 mg) IV SLOW PU ONE (11:27)
[2024-01-21] MEDS: Albumin Human 25% 25 GM/100 ML BTL IV SCH (11:37)
[2024-01-21 12:31] LABS: Urine Osmo 516 mOsm/kg (150-1150)
[2024-01-22 06:34] LABS: Hematocrit 22.1 % (35-45); Hemoglobin 7.7 g/dL (11.5-14.3); Mean Corpuscular Hemoglobin 29.9 pg (27-33); Mean Corpuscular Hgb Conc 34.8 g/dL (31-36); Mean Corpuscular Volume 86.1 fL (80-97); Red Blood Count 2.57 10^6/uL (3.63-4.92); Red Cell Distribution Width 19.1 % (12-17)
[2024-01-22 06:41] LABS: Creatinine, Serum 1.28 mg/dL (0.51-0.95); Magnesium 2.5 mg/dL (1.9-2.7); eGFR CKD-EPI 51.7 (>60)
[2024-01-22 07:37] LABS: ABS Eosinophils 0.1 10^3/uL (0.0-0.5); ABS Lymphocytes 1.1 10^3/uL (1.0-4.8); ABS Monocytes 0.5 10^3/uL (0.0-0.9); ABS Neutrophils 3.2 10^3/uL (1.5-7.6); ABS Nucleated RBC 0.01 10^3/ul; Lymphocyte % 21.8 %; Mean Platelet Volume 8.1 fL (7.5-11.2); Nucleated Red Blood Cells % 0.2 %/100WBC (0.0-0.8); Platelet Count 121 10^3/uL (150-450)
[2024-01-22] MEDS: Bumetanide IV 0.25 MG/ML 4 ml VIAL (1 mg) IV SLOW PU ONE (09:23)
[2024-01-22] MEDS: ALBUMIN HUMAN 25% IV SCH (09:56)
[2024-01-23] MEDS: Bumetanide IV 0.25 MG/ML 4 ml VIAL (1 mg) IV SLOW PU ONE (09:01)
[2024-01-23] MEDS: Albumin Human 25% 25 GM/100 ML BTL IV SCH (09:06)
[2024-01-23 09:41] LABS: Hematocrit 20.8 % (35-45); Hemoglobin 7.3 g/dL (11.5-14.3); Mean Corpuscular Hemoglobin 30.3 pg (27-33); Mean Corpuscular Hgb Conc 35.1 g/dL (31-36); Mean Corpuscular Volume 86.2 fL (80-97); Mean Platelet Volume 8.2 fL (7.5-11.2); Platelet Count 120 10^3/uL (150-450); Red Blood Count 2.42 10^6/uL (3.63-4.92); Red Cell Distribution Width 19.3 % (12-17); White Blood Count 5.2 10^3/uL (3.8-11.8)
[2024-01-23 10:47] LABS: Albumin 3.7 g/dL (3.2-5.2); Albumin/Globulin Ratio 1.9 (1-3); Calcium 8.3 mg/dL (8.6-10.3); Creatinine, Serum 1.19 mg/dL (0.51-0.95); Globulin 1.9 g/dL (2-4); Magnesium 2.6 mg/dL (1.9-2.7); Potassium 5.4 mmol/L (3.5-5.0); Total Bilirubin 3.5 mg/dL (0.2-1.0); Total Protein 5.6 g/dL (6.4-8.9); eGFR CKD-EPI 56.4 (>60)
[2024-01-24 07:45] LABS: ABS Eosinophils 0.1 10^3/uL (0.0-0.5); ABS Lymphocytes 0.8 10^3/uL (1.0-4.8); ABS Monocytes 0.5 10^3/uL (0.0-0.9); ABS Neutrophils 3.9 10^3/uL (1.5-7.6); Hematocrit 21.4 % (35-45); Hemoglobin 7.3 g/dL (11.5-14.3); Lymphocyte % 15.4 %; Mean Corpuscular Hemoglobin 29.8 pg (27-33); Mean Corpuscular Hgb Conc 34.3 g/dL (31-36); Mean Corpuscular Volume 86.8 fL (80-97); Mean Platelet Volume 7.9 fL (7.5-11.2); Nucleated Red Blood Cells % 0.1 %/100WBC (0.0-0.8); Platelet Count 118 10^3/uL (150-450); Red Blood Count 2.46 10^6/uL (3.63-4.92); Red Cell Distribution Width 19.8 % (12-17); White Blood Count 5.5 10^3/uL (3.8-11.8)
[2024-01-24 07:49] LABS: Calcium 8.7 mg/dL (8.6-10.3); Creatinine, Serum 1.23 mg/dL (0.51-0.95); Magnesium 2.6 mg/dL (1.9-2.7); Potassium 5.6 mmol/L (3.5-5.0); eGFR CKD-EPI 54.2 (>60)
[2024-01-24 08:44] LABS: Ferritin 11.5 ng/mL (11-307)
[2024-01-24] MEDS: SODIUM ZIRCONIUM CYCLOSILICATE 10 GM PACKET PO ONE (09:31)
[2024-01-24] MEDS: Bumetanide IV 0.25 MG/ML 4 ml VIAL (1 mg) IV SLOW PU ONE (12:17)
[2024-01-24] MEDS: Albumin Human 25% 25 GM/100 ML BTL IV SCH (12:35)
[2024-01-24 15:45] LABS: Creatinine, Serum 1.31 mg/dL (0.51-0.95); Magnesium 2.5 mg/dL (1.9-2.7); Potassium 4.9 mmol/L (3.5-5.0); eGFR CKD-EPI 50.3 (>60)
[2024-01-24] MEDS: Ferric Gluconate IV 250 MG in NS 0.9% 250 ml 200 ML IVPB ONE (18:27)
[2024-01-25] MEDS: Ferric Gluconate IV 250 MG in NS 0.9% 250 ml 200 ML IVPB ONE (06:17)
[2024-01-25 06:52] LABS: Hematocrit 19.4 % (35-45); Hemoglobin 6.9 g/dL (11.5-14.3); Mean Corpuscular Hemoglobin 30.8 pg (27-33); Mean Corpuscular Hgb Conc 35.4 g/dL (31-36); Mean Corpuscular Volume 87.1 fL (80-97); Red Blood Count 2.23 10^6/uL (3.63-4.92); Red Cell Distribution Width 19.8 % (12-17); White Blood Count 4.6 10^3/uL (3.8-11.8)
[2024-01-25 06:53] LABS: Albumin 4.3 g/dL (3.2-5.2); Albumin/Globulin Ratio 2.7 (1-3); Calcium 8.7 mg/dL (8.6-10.3); Creatinine, Serum 1.17 mg/dL (0.51-0.95); Globulin 1.6 g/dL (2-4); Magnesium 2.6 mg/dL (1.9-2.7); Potassium 4.5 mmol/L (3.5-5.0); Total Bilirubin 2.8 mg/dL (0.2-1.0); Total Protein 5.9 g/dL (6.4-8.9); eGFR CKD-EPI 57.6 (>60)
[2024-01-25 08:49] LABS: ABS Eosinophils 0.1 10^3/uL (0.0-0.5); ABS Lymphocytes 0.7 10^3/uL (1.0-4.8); ABS Monocytes 0.4 10^3/uL (0.0-0.9); ABS Neutrophils 3.4 10^3/uL (1.5-7.6); Eosinophil % 1.3 %; Lymphocyte % 14.5 %; Mean Platelet Volume 7.7 fL (7.5-11.2); Nucleated Red Blood Cells % 0.1 %/100WBC (0.0-0.8); Platelet Count 117 10^3/uL (150-450)
[2024-01-25 14:00] VITALS: BP 126/79
[2024-01-25 15:06] LABS: Hematocrit 22.4 % (35-45); Hemoglobin 7.7 g/dL (11.5-14.3)
== END 2024-01-25 16:40 | disposition home or self-care (01) | DRG 227 ==
LOC: ED 21:12 → SUATTDRO 23:20 → EDHOLD 23:20 → ICU 01-14 08:44 → MEDTELE 01-14 09:26 → MED 01-15 06:28 → SSU 01-17 12:35 → ICU 01-19 03:04 → MEDTELE 01-19 14:17 → MED 01-23 23:39
PROVIDERS: ADMIT Internal Medicine; ATTEND Student in an Organized Health Care Education/Training Program